=== PATIENT | female | born 1985 | race Caucasian/White ===

== ENCOUNTER → 2018-12-11 | Outpatient (CLI) | payer OTHER ==
[~2018-12-11] MED LIST: ALBU90OI INH; ALBU90OI6 INH; AZIT250 PO; BC IMPLANT; BIRTH CONTROL; BIRTHCONTROL PILL; BUSP5 PO; Bactrim Ds Tab1 EACH PO; Bactroban22 GM TOP; CEPH500 PO; CYCL10 PO; Catapres0.1 MG PO; Cleocin HCl300 MG PO; Cyclobenzaprine5 MG PO; DOXY100 PO; FLONASE ALLERG9.9 ML; HIBICLENS120 ML EXT; HYDACE5 PO; HYDACE5325 PO; HYDGUAL120 PO; HYDPAM25 PO; IBUP600 PO; IBUP800 PO; MEDR150I IM; META800 PO; MULVITMINE PO; Norco 10-325 T1 EACH PO; Norco 5-325 Ta1 EACH PO; OMEP20ER PO; ONDA8ODT MM; ORTHO TRI-CYCL1 EACH; PENVK500 PO; PRED10 PO; PRED20 PO; PROCODE120 PO; PROM25 PO; Prozac20 MG; RANI150 PO; Ranitidine HCl150 M1; Sudogest60 MG; Ventolin/Prove6.7 GM INH; Zithromax250 MG PO; [UNRECOGNIZED DRUG - OTHER]; [UNRECOGNIZED DRUG - OTHER]
[2018-12-15 08:17] LABS: HGB A 98.2 % (96.4-98.8); HGB A2 1.8 % (1.8-3.2); HGB SOLUBILITY Negative (Negative)
== END | disposition home or self-care (01) ==
LOC: LAB 12:58 → LAB SHORT 12:58
PROVIDERS: Internal Medicine Hematology & Oncology
DX: Z13.0 Encounter for screening for diseases of the blood and blood-forming organs and certain disorders involving the immune mechanism (principal); D64.9 Anemia, unspecified
CPT/HCPCS: 83021

== ENCOUNTER → 2021-09-10 | Outpatient (CLI) | payer OTHER | END | disposition home or self-care (01) | LOC: LAB SHORT 15:00 | DX: R30.0 Dysuria (principal) | CPT/HCPCS: 87077; 87086; 87186 ==

== ENCOUNTER → 2021-10-04 | Outpatient (CLI) | payer OTHER ==
[2021-10-05 14:07] LABS: HPV 16 Negative (Negative); HPV 18 Negative (Negative); HPV OTHER HR TYPES Negative (Negative)
== END | disposition home or self-care (01) ==
LOC: LAB 14:34 → LAB SHORT 14:34
PROVIDERS: Obstetrics & Gynecology
DX: Z01.419 Encounter for gynecological examination (general) (routine) without abnormal findings (principal)
CPT/HCPCS: 87624; G0123

== ENCOUNTER 2021-12-25 12:13 | Day surgery (SDC) | payer OTHER ==
[~2021-12-25] VITALS: Ht 162.6 cm; Wt 86.9 kg
[2021-12-25] MEDS ORDERED: Budeprion Xl300 MG PO (12:53)
--- NOTE | 2021-12-25 13:00 | NUR ---
12/25/21 1300 Noman Dang CALL LIGHT WITHIN REACH. TWO SMALL OPEN LACERATION BELOW BELLY BUTTON FROM BELLY RING PLACEMENT. AWARE.
--- NOTE | 2021-12-25 14:01 | NUR ---
12/25/21 1401 Padmini Sanches ORSC.JAR LOWER PREP ORSC.KNM UPPER PREP
--- NOTE | 2021-12-25 15:47 | NUR ---
12/25/21 1547 Jazmín Reynolds RN TOOK OVER CARE OF PATIENT FROM NURSE GARLAND GRIFFIN AT 15:20, PATIENT CALM, COOPERATIVE, C/O PAIN PO MEDICATION GIVEN, DISCHARGE INFORMATION GIVEN, HELPED PATIENT GET READY FOR DISCHARGE.
== END 2021-12-25 15:45 | disposition home or self-care (01) ==
LOC: ORSCSDS 12:13
PROVIDERS: Obstetrics & Gynecology
PROC: 0UT74ZZ Resection of Bilateral Fallopian Tubes, Percutaneous Endoscopic Approach (ICD-10-PCS; principal; 2021-12-25 13:30)
DX: Z30.2 Encounter for sterilization (principal); Z15.01 Genetic susceptibility to malignant neoplasm of breast; N80.3 Endometriosis of pelvic peritoneum; Z87.891 Personal history of nicotine dependence; E66.9 Obesity, unspecified; Z68.32 Body mass index [BMI] 32.0-32.9, adult; Z79.899 Other long term (current) drug therapy
CPT/HCPCS: 88302; A9270; J0171; J1100; J1885; J2250; J2405; J2704; J2710; J3010; J7120